=== PATIENT | female | born 1970 | race Two or more races ===

== ENCOUNTER → 2020-12-16 | Day surgery (SDC) | payer OTHER ==
[~2020-12-16] VITALS: Ht 162.6 cm; Wt 170.0 kg
[~2020-12-16] MED LIST: HYDR12.575 PO; IV RINGERS,LACTATED 1000ML 1,000 ML IV SCH; LOSA100T14 PO; PROPOFOL 10 MG/ML (20ML) VIAL. IV ONE
[2020-12-16 10:40] VITALS: BP 137/78
[2020-12-16 11:52] VITALS: BP 112/76
--- NOTE | 2020-12-20 14:07 | PATHOLOGY ---
[facility] Accession Number: [id number] . 01 Material submitted: . PART A: colon - ASCENDING COLON POLYP. Modifiers: ascending PART B: rectum - RECTAL POLYP BIOPSY . 01 Clinical history: . SCREEN/POSITIVE COLOGUARD . 02 Diagnosis: A. Colon biopsies, ascending colon polyp: - Tubular adenoma. . B. Colorectal biopsies, rectal polyp: - Hyperplastic polyp. . (MACK:emily; 12/20/2020) [facility] 12/20/2020 1208 Local . 02 Comment: There is no high-grade dysplasia or evidence of malignancy. (MACKM:emily; 12/20/2020) . 02 Electronically signed: . Juan Melendez MD, Pathologist NPI- [id number] . 01 Gross description: . A. Received in formalin labeled "[place], [place], ascending colon polyp" is a fragment of mccauley-brown soft tissue measuring 0.6 x 0.4 x 0.2 cm. The specimen is submitted entirely in A1. . B. Received in formalin labeled "[place], [place] rectal polyp biopsy" are 2 fragments of mccauley-brown soft tissue measuring 0.3 x 0.2 x 0.1 cm and 0.3 x 0.2 x 0.2 cm. The specimen is submitted entirely in B1. ([facility]; 12/19/2020) G[facility]/GZA 12/19/2020 0936 Local . 02 Pathologist provided ICD-10: D12.2, K63.5 . 02 CPT . 148462, 191750 Specimen Comment: A courtesy copy of this report has been sent to [phone], [phone] Specimen Comment: [id number] Specimen Comment: Report sent to / DR CORONEL Performed at: 01 [facility] [address], [place], [place] [id number] MD Alton Domingo MD Phone: [phone] Performed at: 02 [facility] [address] [place], [place] [id number] MD Juan Melendez MD Phone: [phone]
== END | disposition home or self-care (01) ==
LOC: ENDOS 09:32
PROVIDERS: ATTEND Internal Medicine Gastroenterology
DX: R19.5 Other fecal abnormalities (principal); K64.0 First degree hemorrhoids; D12.2 Benign neoplasm of ascending colon; K57.30 Diverticulosis of large intestine without perforation or abscess without bleeding; K62.1 Rectal polyp; K63.89 Other specified diseases of intestine; I10 Essential (primary) hypertension; E78.00 Pure hypercholesterolemia, unspecified; Z20.822 Contact with and (suspected) exposure to COVID-19; Z79.899 Other long term (current) drug therapy; Z98.890 Other specified postprocedural states
CPT/HCPCS: 45380; 87426; 88305; J2704